=== PATIENT | female | born 1960 | race Caucasian/White ===

== ENCOUNTER → 2020-08-09 | Outpatient (CLI) | payer MEDICARE, OTHER ==
[~2020-08-09] MED LIST: ALIGN4 MG PO; AUGMENTIN 875-1 EACH PO; BENTYL 20MG TAB20 MG PO; COLESTID1 GM PO; COMBIVENT RESPIM4 GM INH; CYCLOBENZAPRINE10 MG PO; CYMBALTA30 MG PO; DULERA 200 MCG8.8 GM INH; HYDROCHLOROTHIA25 MG PO; HYDROCODON-ACE1 EAC2 PO; LASIX20 MG PO; LEVOTHYROXINE PO; MOBIC15 MG PO; NORVASC5 MG PO; OMEPRAZOLE40 MG PO; PERCOCET 5-3251 EACH PO; PERPHENAZINE8 MG PO; SINEQUAN CAP 2525 MG PO; SYNTHROID100 MCG PO; TENORMIN100 MG PO; TRAZODONE HCL100 MG PO; VASCEPA1 GM PO; VITAMIN D325 MCG PO; VITAMIN D350000 UNIT PO; VOLTAREN EC 7575 MG PO; XANAX PO; XANAX2 MG PO; XARELTO10 MG PO; ZANTAC300 MG PO; ZYRTEC10 MG PO
== END ==
LOC: EXRD 08:41
DX: K75.81 Nonalcoholic steatohepatitis (NASH) (principal)
CPT/HCPCS: 76700

== ENCOUNTER → 2020-09-04 | Outpatient (CLI) | payer MEDICARE, OTHER | LOC: KOH-I 09-02 13:30 | DX: Z12.2 Encounter for screening for malignant neoplasm of respiratory organs (principal); Z87.891 Personal history of nicotine dependence; R91.1 Solitary pulmonary nodule | CPT/HCPCS: 71271 ==

== ENCOUNTER 2020-12-05 20:26 | Inpatient (IN) | payer MEDICARE, OTHER ==
[~2020-12-05] VITALS: Ht 160 cm; Wt 105.7 kg
[~2020-12-05 20:26] MED LIST changes: -ALIGN4 MG PO; -AUGMENTIN 875-1 EACH PO; -BENTYL 20MG TAB20 MG PO; -COLESTID1 GM PO; -COMBIVENT RESPIM4 GM INH; -CYCLOBENZAPRINE10 MG PO; -DULERA 200 MCG8.8 GM INH; -HYDROCHLOROTHIA25 MG PO; -HYDROCODON-ACE1 EAC2 PO; -NORVASC5 MG PO; -OMEPRAZOLE40 MG PO; -PERPHENAZINE8 MG PO; -SINEQUAN CAP 2525 MG PO; -SYNTHROID100 MCG PO; -TENORMIN100 MG PO; -TRAZODONE HCL100 MG PO; -VASCEPA1 GM PO; -VITAMIN D325 MCG PO; -VOLTAREN EC 7575 MG PO; -XANAX2 MG PO; -ZYRTEC10 MG PO
[2020-12-05 21:51] LABS: HEMOGLOBIN 13.1 gm/dl (12.3-15.3); RED BLOOD COUNT 4.57 M/UL (4.00-5.10)
[2020-12-05 22:08] LABS: BUN/CREATININE RATIO 24 (0-10)
[2020-12-06] MEDS ORDERED: SYNTHROID100 MCG PO (11:08)
[2020-12-06] MEDS ORDERED: NORVASC5 MG PO (11:10)
[2020-12-06] MEDS ORDERED: COLESTID1 GM PO (11:10)
[2020-12-06] MEDS ORDERED: SINEQUAN CAP 2525 MG PO (11:11)
[2020-12-06] MEDS ORDERED: VOLTAREN EC 7575 MG PO (11:11)
[2020-12-06] MEDS ORDERED: VASCEPA1 GM PO (11:12)
[2020-12-06] MEDS ORDERED: HYDROCHLOROTHIA25 MG PO (11:13)
[2020-12-06] MEDS ORDERED: VITAMIN D325 MCG PO (11:48)
[2020-12-06] MEDS ORDERED: BENTYL 20MG TAB20 MG PO (11:49)
[2020-12-06] MEDS ORDERED: OMEPRAZOLE40 MG PO (11:51)
[2020-12-06] MEDS ORDERED: ALIGN4 MG PO (11:52)
[2020-12-06] MEDS ORDERED: XANAX2 MG PO (12:47)
[2020-12-06] MEDS ORDERED: TENORMIN100 MG PO (13:30)
[2020-12-06] MEDS ORDERED: DULERA 200 MCG8.8 GM INH (13:39)
[2020-12-06] MEDS ORDERED: ZYRTEC10 MG PO (13:40)
[2020-12-06] MEDS ORDERED: COMBIVENT RESPIM4 GM INH (13:40)
[2020-12-06] MEDS ORDERED: PERPHENAZINE8 MG PO (13:41)
[2020-12-06] MEDS ORDERED: HYDROCODON-ACE1 EAC2 PO (13:43)
[2020-12-06] MEDS ORDERED: TRAZODONE HCL100 MG PO (13:43)
[2020-12-06] MEDS ORDERED: CYCLOBENZAPRINE10 MG PO (13:59)
[2020-12-06 14:20] LABS: HEMOGLOBIN 11.8 gm/dl (12.3-15.3)
[2020-12-06 14:23] LABS: RED BLOOD COUNT 3.93 M/UL (4.00-5.10); WHITE BLOOD COUNT 15.2 K/UL (4.5-11.0)
[2020-12-06 14:51] LABS: BUN/CREATININE RATIO 15 (0-10)
[2020-12-07 04:42] LABS: HEMOGLOBIN 11.6 gm/dl (12.3-15.3); RED BLOOD COUNT 3.99 M/UL (4.00-5.10)
[2020-12-07 04:51] LABS: BUN/CREATININE RATIO 16 (0-10)
[2020-12-08 04:19] LABS: RED BLOOD COUNT 4.02 M/UL (4.00-5.10); WHITE BLOOD COUNT 11.2 K/UL (4.5-11.0)
[2020-12-08 04:42] LABS: BUN/CREATININE RATIO 13 (0-10)
[2020-12-08] MEDS ORDERED: AUGMENTIN 875-1 EACH PO (11:41)
== END 2020-12-08 17:56 | disposition home or self-care (01) | DRG 871 ==
LOC: ER1 20:26 → CDU 12-06 00:19 → MED SURG 4 12-06 14:40
PROVIDERS: Internal Medicine Infectious Disease; Physician Assistant; Psychiatry & Neurology Neurology; ADMIT Internal Medicine
DX: A41.9 Sepsis, unspecified organism (principal); J69.0 Pneumonitis due to inhalation of food and vomit; J18.9 Pneumonia, unspecified organism; J96.21 Acute and chronic respiratory failure with hypoxia; J96.22 Acute and chronic respiratory failure with hypercapnia; E66.2 Morbid (severe) obesity with alveolar hypoventilation; E87.2 Acidosis; E87.1 Hypo-osmolality and hyponatremia; Z68.41 Body mass index [BMI] 40.0-44.9, adult; Z20.822 Contact with and (suspected) exposure to COVID-19; M19.90 Unspecified osteoarthritis, unspecified site; E87.6 Hypokalemia; R65.20 Severe sepsis without septic shock; J44.9 Chronic obstructive pulmonary disease, unspecified; T50.2X5A Adverse effect of carbonic-anhydrase inhibitors, benzothiadiazides and other diuretics, initial encounter; C44.90 Unspecified malignant neoplasm of skin, unspecified; K52.9 Noninfective gastroenteritis and colitis, unspecified; E11.9 Type 2 diabetes mellitus without complications; F41.9 Anxiety disorder, unspecified; I10 Essential (primary) hypertension; Z79.01 Long term (current) use of anticoagulants; Z88.6 Allergy status to analgesic agent; Z79.4 Long term (current) use of insulin
CPT/HCPCS: 0240U; 36415; 36600; 70450; 71045; 71046; 80048; 80053; 80307; 81001; 82550; 82553; 82803; 83605; 83735; 83874; 83880; 84484; 85025; 87040; 93005; 94640; 94664; 94760; 96365; 99285; J1335; J1650; J2543; J3370; J7030; Q9967

== ENCOUNTER → 2020-12-24 | Outpatient (CLI) | payer MEDICARE, OTHER ==
[~2020-12-24] MED LIST changes: +ALIGN4 MG PO; +AUGMENTIN 875-1 EACH PO; +BENTYL 20MG TAB20 MG PO; +COLESTID1 GM PO; +COMBIVENT RESPIM4 GM INH; +CYCLOBENZAPRINE10 MG PO; +DULERA 200 MCG8.8 GM INH; +HYDROCHLOROTHIA25 MG PO; +HYDROCODON-ACE1 EAC2 PO; +NORVASC5 MG PO; +OMEPRAZOLE40 MG PO; +PERPHENAZINE8 MG PO; +SINEQUAN CAP 2525 MG PO; +SYNTHROID100 MCG PO; +TENORMIN100 MG PO; +TRAZODONE HCL100 MG PO; +VASCEPA1 GM PO; +VITAMIN D325 MCG PO; +VOLTAREN EC 7575 MG PO; +XANAX2 MG PO; +ZYRTEC10 MG PO
== END ==
LOC: KOH-I 13:26
DX: J18.9 Pneumonia, unspecified organism (principal)
CPT/HCPCS: 71046

== ENCOUNTER 2021-03-07 09:56 | Emergency (ER) | payer MEDICARE, OTHER ==
[2021-03-07 11:06] LABS: HEMOGLOBIN 12.9 gm/dl (12.3-15.3); RED BLOOD COUNT 4.6 M/UL (4.00-5.10); WHITE BLOOD COUNT 13.1 K/UL (4.5-11.0)
[2021-03-07 11:33] LABS: BUN/CREATININE RATIO 19 (0-10)
[2021-03-07] MEDS ORDERED: TORADOL 10 MG T10 MG PO (16:36)
[2021-03-07] MEDS ORDERED: ONDANSETRON ODT4 MG SL (16:36)
== END 2021-03-07 17:05 | disposition home or self-care (01) ==
LOC: ER1 09:56
PROVIDERS: Emergency Medicine
DX: R07.89 Other chest pain (principal); R51.9 Headache, unspecified; R09.02 Hypoxemia; Z20.822 Contact with and (suspected) exposure to COVID-19; I10 Essential (primary) hypertension; Z90.49 Acquired absence of other specified parts of digestive tract; Z90.710 Acquired absence of both cervix and uterus; Z88.5 Allergy status to narcotic agent
CPT/HCPCS: 36600; 70450; 71045; 80053; 81001; 82550; 82553; 82803; 83874; 84484; 85025; 85379; 93005; 96374; 96375; 99284; J1200; J1885; J2765; J7030; Q9967; U0002

== ENCOUNTER → 2021-04-07 | Outpatient (CLI) | payer MEDICARE, OTHER ==
[~2021-04-07] MED LIST changes: +ONDANSETRON ODT4 MG SL; +TORADOL 10 MG T10 MG PO
== END ==
LOC: HEART 5 14:31
DX: J44.9 Chronic obstructive pulmonary disease, unspecified (principal); G47.30 Sleep apnea, unspecified
CPT/HCPCS: 94060; 94729

== ENCOUNTER → 2021-05-12 | Outpatient (CLI) | payer MEDICARE, OTHER | LOC: SLEEP 21:30 | DX: G47.33 Obstructive sleep apnea (adult) (pediatric) (principal); R94.39 Abnormal result of other cardiovascular function study; J30.9 Allergic rhinitis, unspecified; I20.9 Angina pectoris, unspecified; F41.9 Anxiety disorder, unspecified | CPT/HCPCS: 95810 ==

== ENCOUNTER → 2021-06-23 | Outpatient (CLI) | payer OTHER | LOC: KOH-I 13:40 | DX: K59.00 Constipation, unspecified (principal); R15.2 Fecal urgency; R11.2 Nausea with vomiting, unspecified | CPT/HCPCS: 74018 ==

== ENCOUNTER → 2021-08-07 | Outpatient (CLI) | payer OTHER | LOC: EMI 10:01 | DX: M47.26 Other spondylosis with radiculopathy, lumbar region (principal); M48.061 Spinal stenosis, lumbar region without neurogenic claudication | CPT/HCPCS: 72148 ==

== ENCOUNTER → 2021-08-27 | Outpatient (CLI) | payer OTHER | LOC: EMI 08-19 11:15 | DX: G44.89 Other headache syndrome (principal); M54.81 Occipital neuralgia | CPT/HCPCS: 70551 ==

== ENCOUNTER → 2022-03-02 | Outpatient (CLI) | payer OTHER | LOC: KOH-I 02-11 14:00 | DX: Z87.891 Personal history of nicotine dependence (principal) | CPT/HCPCS: 71271 ==

== ENCOUNTER → 2022-03-23 | Outpatient (CLI) | payer OTHER | LOC: NM 08:54 | DX: R11.2 Nausea with vomiting, unspecified (principal); R10.13 Epigastric pain; R93.3 Abnormal findings on diagnostic imaging of other parts of digestive tract | CPT/HCPCS: 78264; A9541 ==